=== PATIENT | female | born 1985 | race Caucasian/White ===

== ENCOUNTER 2016-04-22 22:06 | Outpatient (CLI) | payer OTHER ==
[~2016-04-22] VITALS: Ht 167.6 cm; Wt 72.8 kg
[~2016-04-22 22:06] MED LIST: LORA1TAB PO
[2016-04-22 22:19] VITALS: Ht 167.6 cm; Wt 72.8 kg
[2016-04-22 22:20] VITALS: BP 120/56; PULSE 89; RESP 18
[2016-04-22] MEDS ORDERED: PREN1TAB62 PO (22:24)
--- NOTE | 2016-04-22 23:41 | RADRPT ---
PROCEDURE: Limited OB ultrasound CLINICAL INDICATION: well-being. TECHNIQUE: Sonographic evaluation to assess the amniotic fluid index was performed. Transabdomina l and transvaginal imaging of the gravid uterus was performed. COMPARISON: None. FINDINGS: A single live intrauterine in breech presentation is identified. The heart rate jessi ures 159 bpm. The amniotic -fluid index equals approximately 14.1 cm, within normal limits. There is a posterior placenta, grade 1. The transvaginal cervical length measures 3.6 cm. IMPRESSION: 1. Single live intrauterine . 2. Amniotic fluid index: 14.0 cm. RPTAT: HTAR .Clovis Rodriguez MD, MD Date Time Electronically viewed and signed by .Clovis Rodriguez MD, on 04/22/2016 23:41 .R/
--- NOTE | 2016-04-23 05:50 | TRIAGE ---
OB Triage Datetime Report Generated by CPN: 04/23/2016 05:50 Datetime: 04/23/2016 00:20 Stage of : OB Triage Datetime: 04/22/2016 23:31 Vaginal Exam Membrane Status: Intact Datetime: 04/22/2016 23:08 Labor Evaluation Frequency: 0 Monitor Mode: External Heart Rate FHR Baseline Rate: 155 Monitor Mode: External US FHR Baseline Changes: No Baseline Change Variability: Moderate 6-25 bpm Accelerations: 10X10 Decelerations: None Category: Category II Datetime: 04/22/2016 22:59 Stage of : OB Triage Datetime: 04/22/2016 22:38 Stage of : OB Triage Datetime: 04/22/2016 22:27 EGA: 23.3 Datetime: 04/22/2016 22:11 Stage of : OB Triage Time of Arrival: 04/22/2016 21:55 Arrived By: Ambulatory Arrived From: Home Chief Complaint: COUGH X1 MTH, ABDONINAL PAIN SINCE THIS AM Movement: Present Contractions: Denies/Absent Rupture of Membranes: Denies Vaginal Bleeding: None Vaginal Discharge: Denies Recent Sexual Intercouse: Denies Abdominal Trauma: Not Applicable Patient Complaints: None Time Provider Notified: 04/22/2016 22:30 Provider Notified: DR FRAUSTO Initial Plan: CALL NIMO RED Maternal Assessment Level of Consciousness: Fully Conscious DTR's/Clonus: DTRs 2+; No Clonus Headache: Denies Blurred Vision: No Respiratory Effort: Unlabored; Regular Rhythm; Equal Expansion Breath Sounds, Left: Clear and Equal Breath Sounds, Right: Clear and Equal Nausea/Vomiting: Denies RUQ Epigastric Pain: Denies Lower Extremities Edema: None Degree: None Upper Extremities Edema: None Degree: None Facial Edema: None Temperature Route: Oral Fall Risk Assessment History of Falling: (0) No Secondary Diagnosis: (0) No Ambulatory Aid: (0) Bedrest/Nurse Assist IV Therapy: (0) No Gait: (0) Normal/Bedrest/Immobile Mental Status: (0) Oriented to Own Ability Fall Score: 0 Fall Risk Score Definition: No Risk: No action required Monitor Mode: External Monitor Mode: External US Pain Assessment Pain Scale: 6 Pain Presence: Constant Pain Type: Cramping; Sharp
== END 2016-04-23 00:20 | disposition home or self-care (01) ==
LOC: OBT 22:06 → L-D 22:07 → OBT 04-23 00:20
PROVIDERS: ATTEND Obstetrics & Gynecology
DX: O60.02 Preterm labor without delivery, second trimester (principal); Z3A.24 24 weeks gestation of pregnancy
CPT/HCPCS: 76815; 76817; Z7500; G0463

== ENCOUNTER 2016-07-14 01:30 | Emergency (ER) | payer OTHER ==
[~2016-07-14] VITALS: Ht 167.6 cm; Wt 90.0 kg
[~2016-07-14 01:30] MED LIST changes: -LORA1TAB PO; +PREN1TAB62 PO
[2016-07-14 01:40] VITALS: Ht 167.6 cm; Wt 90.0 kg
[2016-07-14] MEDS ORDERED: HYDR-902 PO (02:20)
--- NOTE | 2016-07-14 02:22 | ERD ---
ER Documentation Chief Complaint Date/Time DATE: 07/14/16 TIME: 02:20 Chief Complaint Unable to get percocet. out of stock per pt, needs another med for pain HPI Patient is a 30-year-old female who had a on May 12 and has severe pain at the surgical site. She was given a prescription for Percocet by her doctor however she is unable to find this medication at any pharmacy. She brought the prescription to demonstrate that she was given it. She denies any fever. Denies any bleeding or drainage. Denies any abdominal pain, nausea, vomiting, diarrhea. She is not breast-feeding. Her baby was born 5 weeks early and is currently in the NICU. ROS All systems reviewed and are negative except as per history of present illness. Medications Home Meds Active Scripts Hydrocodone/Acetaminophen ([place] 10-325 Tablet) 1 Each Tablet, 1 TAB PO Q6H Y for PAIN, #20 TAB Prov:KARYN GONSALEZ PA-C 07/14/16 Reported Medications Vit-Iron Fumarate-FA ( Vitamin Tablet) 1 Each Tablet, 1 TAB PO DAILY, TAB 04/22/16 Allergies Allergies: Coded Allergies: No Known Allergy (Unverified , 04/22/16) PMhx/Soc History of Surgery: Yes ( X3) Anesthesia Reaction: No Hx Neurological Disorder: No Hx Respiratory Disorders: No Hx Cardiac Disorders: No Hx Psychiatric Problems: No Hx Miscellaneous Medical Probl: No Hx Alcohol Use: No Hx Substance Use: Yes (METH, LAST USE 12/25/15) Hx Tobacco Use: Yes FmHx Family History: No diabetes Physical Exam Vitals Vital Signs Date Time Temp Pulse Resp B/P Pulse Ox O2 Delivery O2 Flow Rate FiO2 07/14/16 01:40 98.1 83 20 120/69 98 Physical Exam Const: [] Head: Atraumatic Eyes: Normal Conjunctiva ENT: Normal External Ears, Nose and Mouth. Neck: Full range of motion..~ No meningismus. Resp: Clear to auscultation bilaterally Cardio: Regular rate and rhythm, no murmurs Abd: Soft, non tender, non distended. Normal bowel sounds Skin: Healed surgical scar with lorena in place, no surrounding erythema, no bleeding or drainage Results 24 hrs Current Medications Medications (Trade) Dose Ordered Sig/Tae Route PRN Reason Start Time Stop Time Status Last Admin Dose Admin Acetaminophen/ Hydrocodone Bitart ([place] (10)) 1 tab ONCE ONCE PO 07/14/16 02:30 07/14/16 02:31 Procedures/MDM 22-year-old female is here because she has severe pain at the site of her C- section. She is not breast-feeding. Her vital signs are normal and there is no evidence of infection on her site. She brought a prescription demonstrated she was given Percocet but she is unable to find it at any pharmacy. I gave her one [place] here in the emergency room and discharged her with a small amount of [place]. Recommended this patient follow up with her primary care doctor within 48 hours or return to the emergency room for any worsening of symptoms. However this time I do believe there is suitable for outpatient management. I answered all their questions and they agreed with the plan and were discharged home. Departure Diagnosis: Primary Impression: Pain at surgical site Additional Impression: Encounter for medication refill Condition: Stable Patient Instructions: Taking Medicine Safely Additional Instructions: Call your primary care doctor TOMORROW for an appointment during the next 1-2 days.See the doctor sooner or return here if your condition worsens before your appointment time. KARYN GONSALEZ PA-C July 14, 2016 02:22
[2016-07-14] MEDS ORDERED: HYDROCODONE/APAP (10/325) TAB PO ONE (02:30)
== END 2016-07-14 02:31 | disposition home or self-care (01) ==
LOC: FTE 01:30
DX: G89.18 Other acute postprocedural pain (principal); R10.9 Unspecified abdominal pain; Z76.0 Encounter for issue of repeat prescription
CPT/HCPCS: 99283

== ENCOUNTER 2017-03-11 12:02 | Emergency (ER) | END 2017-03-11 19:00 | disposition left against medical advice (07) ==

== ENCOUNTER 2017-10-30 11:03 | Emergency (ER) | END 2017-10-30 13:50 | disposition home or self-care (01) ==

== ENCOUNTER 2017-11-19 20:52 | Emergency (ER) | END 2017-11-20 01:11 | disposition home or self-care (01) ==

== ENCOUNTER 2018-08-25 22:18 | Emergency (ER) | payer OTHER ==
[~2018-08-25] VITALS: Ht 167.6 cm; Wt 72.7 kg
[~2018-08-25 22:18] MED LIST changes: +ACET325T33 PO; +HYDR-3980 PO
[2018-08-25 22:25] VITALS: Ht 167.6 cm; Wt 72.7 kg
[2018-08-25] MEDS ORDERED: DIPHTH/TET/ACEL PERTUSS (ADULT) 0.5 ML VIAL IM* ONE (23:00)
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
[2018-08-25] MEDS: LORAZEPAM 2 MG INJ IM ONE ×2 (23:28→23:35)
[2018-08-26] MEDS ORDERED: SOD CHLORIDE 0.9% 1,000 ML IV STA (00:03)
[2018-08-26] MEDS ORDERED: LIDOCAINE 1% (MDV) 20 ML INJ SC ONE (00:30)
[2018-08-26] MEDS ORDERED: BACITRACIN 0.9 GM OINT TOP ONE (02:00)
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
[2018-08-26] MEDS ORDERED: HALOPERIDOL 5 MG INJ IM STA (03:22)
[2018-08-26] MEDS ORDERED: LORAZEPAM 2 MG INJ IV ONE (03:30)
[2018-08-26] MEDS ORDERED: DIPHENHYDRAMINE 50 MG INJ IV ONE (03:30)
[2018-08-26] MEDS ORDERED: IBUPROFEN 800 MG TAB PO ONE (10:00)
--- NOTE | 2018-08-26 11:06 | QN ---
Documentation Comment Observation Note: Time: 4 hours Family Hx: Negative for diabetes Evaluation: Multiple exams showed improving symptoms and no evidence of clinical decompensation. GENARO ENGLISH MD Aug 26, 2018 11:06
[2018-08-26] MEDS ORDERED: IBUP-1542 PO (13:00)
[2018-08-26 13:59] VITALS: BP 142/84; PULSE 92; RESP 18
== END 2018-08-26 14:01 | disposition home or self-care (01) ==
LOC: FTE 22:18 → E/R 08-26 14:01
DX: S01.01XA Laceration without foreign body of scalp, initial encounter (principal); S51.812A Laceration without foreign body of left forearm, initial encounter; F29 Unspecified psychosis not due to a substance or known physiological condition; F15.10 Other stimulant abuse, uncomplicated; X99.1XXA Assault by knife, initial encounter; Z23 Encounter for immunization
CPT/HCPCS: 80053; 80176; 80307; 81001; 81025; 84703; 85025; 90471; 90715; 93005; 96374; 96375; J1200; J1630; J2060; J7030; Z7502; Z7610